=== PATIENT | male | born 1975 | race Two or more races ===

== ENCOUNTER 2016-11-11 18:44 | Emergency (ER) | payer OTHER ==
[2016-11-11 18:54] VITALS: RESP 18; TEMP 98; O2SAT 96
[2016-11-11] MEDS ORDERED: IBUPROFEN 800 MG TAB PO ONE (18:57)
[2016-11-11] MEDS ORDERED: HYDROCODONE/APAP 5/325 TAB PO ONE (18:57)
--- NOTE | 2016-11-11 19:01 | UCPHY ---
H & P Time Seen by Provider: 11/11/16 18:52 Patient Type: New HPI/ROS: HPI Back pain, fell down stairs. 41-year-old male by private vehicle with his son. This patient reports that at 3:30 p.m. today he was coming down a flight of stairs. He reports that he slipped and fell to his right side striking the edge of 1 of the steps with his right lower posterior rib area. He complains of isolated pain to this area which is worse with movement and deep breathing. Denies gross hematuria. No other complaints. ROS: Constitutional: No fever, no chills. No weakness. Eyes: No discharge. No changes in vision. ENT: No sore throat. No nasal congestion or rhinorrhea. Respiratory: No cough. No shortness of breath. Cardiac: No chest pain, no palpitations. Gastrointestinal: No abdominal pain, no vomiting, no diarrhea. Genitourinary: No hematuria. No dysuria or increased frequency with urination. Musculoskeletal: As above. No neck pain. No extremity pain. Skin: No rashes. No lacerations or abrasions. Neurological: No headache. No focal weakness or altered sensation. Past medical history: None. Social history: Here with his son. Physical Exam: General Appearance: Alert, no distress. This patient is responding to questions appropriately and in full sentences. This patient appears well- hydrated and well-nourished. Head: Normocephalic atraumatic. Face: Facial bones are stable on palpation. Eyes: Pupils equal and round and reactive to light, no pallor or injection. No lid erythema or edema. ENT, Mouth: Mucous membranes moist. Dentition is intact. No malocclusion of the jaw. No tongue lacerations or abrasions. Pharynx is clear. The bilateral nasal canals are clear. No septal hematoma. Respiratory: There are no retractions, lungs are clear to auscultation with good air movement bilaterally. Chest wall is stable to AP and lateral palpation. Cardiovascular: Regular rate and rhythm. No murmur. Gastrointestinal: Abdomen is soft and nontender, no masses, bowel sounds normal. Neurological: Motor sensory function is intact. Cranial nerves are normal. Cerebellar function intact. Skin: Warm and dry, no rashes. No lacerations, abrasions or contusions. Musculoskeletal: Neck is supple and nontender. The trachea is midline. No midline cervical, thoracic, lumbar or sacral tenderness on palpation. No flank tenderness on palpation. Focal tenderness posterior axillary line ribs 11 and 12. No ecchymosis, edema, erythema or warmth associated. No crepitus noted on palpation of this area. Extremities are symmetrical, full range of motion. All joints in the bilateral upper and bilateral lower extremities range without pain or impingement. No tenderness on palpation of the long bones in the bilateral upper and bilateral lower extremities. Psychiatric: No agitation. No depression. Database: Urinalysis: Negative for blood. EKG: Imaging: Right-sided rib series x-ray with chest x-ray; no pneumothorax. The cardiac mediastinal silhouette is unremarkable, significant for fracture of the distal 11th right rib. Interpreted by me. Procedures: Emergency department course: Urine sample obtained. Patient sent for right-sided rib series x-ray. Patient given 800 mg of ibuprofen and 2 Henderson tablets. 7:20 p.m., patient re-evaluated. Resting comfortably at this time. Results of urinalysis and x-rays discussed with him. Diagnosis of isolated rib fracture discussed. He does feel comfortable going home and I feel he is safe for discharge. Follow-up and return to emergency department precautions reviewed with him. I will prescribe ibuprofen as well as Henderson for pain medication. All of his questions were answered. He was discharged home in good condition with his son who is driving. Differential Diagnosis: The differential diagnosis on this patient includes but is not limited to rib fracture, rib contusion. Pneumothorax, renal laceration, spinal fracture, other significant traumatic injury unlikely. This represents a partial list of diagnoses considered. These considerations are based on history, physical exam , past history, reassessment and diagnostic testing. Smoking Status: Never smoked Constitutional: Initial Vital Signs Temperature (C) 36.6 C 11/11/16 18:52 Heart Rate 78 11/11/16 18:52 Respiratory Rate 18 11/11/16 18:52 Blood Pressure 146/80 H 11/11/16 18:52 O2 Sat (%) 96 11/11/16 18:52 O2 Delivery Mode Room Air Allergies/Adverse Reactions: No Known Allergies Allergy (Unverified 11/11/16 18:52) Home Medications: Medication Instructions Recorded Docusate Sodium [Colace 100 MG (*)] 100 mg PO TID #20 cap 11/11/16 Hydrocodone/APAP 5/325 [Henderson 1 - 2 tab PO Q4-6PRN PRN #10 tab 11/11/16 5/325 (*)] MDM/Departure - MDM Medications Given: Discontinued Medications Acetaminophen/Hydrocodone Bitart (Henderson 5/325) 2 tab PO EDNOW ONE Stop: 11/11/16 18:58 Last Admin: 11/11/16 19:37 Dose: 2 tab Acetaminophen/Hydrocodone Bitart (Henderson 5/325mg Prepack#6) 1 btl TAKEHOME EDNOW ONE Stop: 11/11/16 19:25 Last Admin: 11/11/16 19:37 Dose: 1 btl Ibuprofen (Motrin) 800 mg PO EDNOW ONE Stop: 11/11/16 18:58 Last Admin: 11/11/16 19:38 Dose: 800 mg - Depart Disposition: Home, Routine, Self-Care Clinical Impression: Mechanical fall down stairs, Rib fracture Condition: Good Additional Instructions: Read and follow provided instructions. Ibuprofen dosin mg every 6 hours with meals for the next 3 days only. Henderson/Percocet dosin-2 every 4-6 hours for [address] Do not drive on this medication. Follow-up with your primary care physician in 2-3 days for re-evaluation. Take medication as prescribed only. Avoid any activity which exacerbates your pain. Return to the emergency department for worsening or uncontrolled pain, difficulty breathing, fever, cough or other serious concerns. Stand Alone Forms: Work Excuse Prescriptions: Docusate Sodium [Colace 100 MG (*)] 100 mg PO TID #20 cap Hydrocodone/APAP 5/325 [Henderson 5/325 (*)] 1 - 2 tab PO Q4-6PRN PRN #10 tab PRN Reason: Pain, Moderate Referrals: JULIET LIRIANO,. [Primary Care Provider] - As per Instructions - PQRS PQRS Measurement: Not applicable.
[2016-11-11 19:08] LABS: COLOR YELLOW; LEUKOCYTE ESTERASE,URINE NEGATIVE (NEGATIVE); NITRITE,URINE NEGATIVE (NEGATIVE); PH,URINE 6.5 (5.0-7.5)
[2016-11-11] MEDS ORDERED: HYDROCOD/APAP 5/325 PREPACK#6 BTL TAKEHOME ONE (19:24)
--- NOTE | 2016-11-11 19:24 | DX ---
Chest and Right Ribs, Four Views November 11, 2016 at 1905 hours History: Fall down stairs, back pain. Comparison: None. Findings: Cardiac silhouette is within normal range. No pneumonia, congestive heart failure, pleura l effusion, or pneumothorax. Minimally displaced fracture of the posterolateral aspect of the right 11th rib. No pneumothorax. Impressions 1. Right 11th rib fracture. 2. No pneumothorax.
[2016-11-11 19:37] VITALS: BP 144/78; PULSE 75
== END 2016-11-11 19:36 | disposition home or self-care (01) ==
LOC: CED 18:44
DX: S22.31XA Fracture of one rib, right side, initial encounter for closed fracture (principal); W01.198A Fall on same level from slipping, tripping and stumbling with subsequent striking against other object, initial encounter
CPT/HCPCS: 71101-PO; 81003-PO; 99203-PO; G0463-PO